=== PATIENT | male | born 1990 | race Two or more races ===

== ENCOUNTER 2016-11-08 15:24 | Emergency (ER) | payer OTHER ==
[~2016-11-08] VITALS: Ht 195.6 cm; Wt 100.0 kg
[~2016-11-08 15:24] MED LIST: AMOXICILLIN500 M1 PO; NOHOMEMEDS
[2016-11-08] MEDS ORDERED: FLEXERIL10 MG PO (18:31)
[2016-11-08] MEDS ORDERED: MOTRIN600 MG PO (18:31)
[2016-11-08 18:36] VITALS: BP 127/94
== END 2016-11-08 18:37 | disposition home or self-care (01) ==
LOC: EME 15:24
DX: M62.838 Other muscle spasm (principal); T14.8 Other injury of unspecified body region; M54.2 Cervicalgia; M54.5 Low back pain; M79.645 Pain in left finger(s); V43.52XA Car driver injured in collision with other type car in traffic accident, initial encounter; J45.909 Unspecified asthma, uncomplicated; F17.200 Nicotine dependence, unspecified, uncomplicated
CPT/HCPCS: 72100; 72125; 73140; 99281; 99283